=== PATIENT | male | born 1940 | race Caucasian/White ===

== ENCOUNTER → 2023-07-14 06:58 | Outpatient (REF) | payer MEDICARE, BC, SELFPAY | LOC: PAVMRI 06:58 | PROVIDERS: ATTENDING PHYSICIAN Internal Medicine; FAMILY PHYSICIAN Internal Medicine Geriatric Medicine | DX: I63.9 Cerebral infarction, unspecified (principal); G45.9 Transient cerebral ischemic attack, unspecified; Z86.73 Personal history of transient ischemic attack (TIA), and cerebral infarction without residual deficits | CPT/HCPCS: 70551 ==

== ENCOUNTER → 2023-08-04 10:57 | Outpatient (REF) | payer MEDICARE, BC, SELFPAY | LOC: RAD 10:57 | PROVIDERS: ATTENDING PHYSICIAN Internal Medicine; FAMILY PHYSICIAN Internal Medicine Geriatric Medicine; REFERRING PHYSICIAN Internal Medicine Cardiovascular Disease | DX: I63.9 Cerebral infarction, unspecified (principal); G45.9 Transient cerebral ischemic attack, unspecified | CPT/HCPCS: 93880 ==

== ENCOUNTER → 2024-01-11 07:18 | Outpatient (REF) | payer MEDICARE, BC, SELFPAY ==
[2024-01-11 08:50] LABS: % Basophils 0.9 % (0-2); % Eosinophils 1.4 % (0-6); % Immature Granulocytes 0.4 % (0-0.5); % Lymphocytes 26.4 % (20.5-51.1); % Monocytes 10.4 % (1.7-9.3); % Neutrophils 60.5 % (42.2-75.2); Absolute Basophils 0.1 10^3/uL (0-0.2); Absolute Eosinophils 0.1 10^3/uL (0-0.7); Absolute Monocytes 0.8 10^3/uL (0.1-0.6); Absolute Neutrophils 4.6 10^3/uL (1.4-6.5); Mean Corp Hgb Conc. 33.3 g/dL (33.0-37.0); Mean Corpuscular Hgb 27.6 pg (27.0-31.0); Mean Corpuscular Volume 82.7 fL (80.0-94.0); Mean Platelet Volume 10.2 fL (7.4-10.4); Nucleated Red Blood Cells % 0 % (-); Platelet Count 267 10^3/uL (130-400); Red Blood Cell Count 5.08 10^6/uL (4.70-6.10); Red Cell Dist. Width 14.5 % (11.5-14.5); White Blood Cell Count 7.7 10^3/uL (4.8-10.8)
[2024-01-11 09:12] LABS: Microalbumin, Random Urine 1.6 mg/dl (0.6-1.7); Microalbumin/creatinine Ratio 16.7 mg/g
[2024-01-11 09:22] LABS: ALT (SGPT) 25 U/L (0-50); AST (SGOT) 27 U/L (17-59); Albumin 4.5 g/dl (3.5-5.0); Alkaline Phosphatase 37 U/L (38-126); Blood Urea Nitrogen 33 mg/dl (9-20); Calcium 9.7 mg/dl (8.4-10.2); Carbon Dioxide 28 mmol/L (22-30); Chloride 98 mmol/L (98-107); Glucose 109 mg/dl (70-99); HDL Cholesterol 48 mg/dl; LDL Cholesterol, Calculated 43 mg/dl; Sodium 139 mmol/L (135-145); Total Bilirubin 0.7 mg/dl (0.2-1.3); Total Cholesterol 107 mg/dl (50-199); Total Protein 6.9 g/dl (6.3-8.2); Triglyceride 80 mg/dl (10-149); Very Low Density Lipoprotein 16 mg/dl (0-30); eGFR > 60.00
[2024-01-11 10:34] LABS: Glycohemoglobin (HgbA1c) 7.1 % (4.0-5.6)
[2024-01-13 04:20] LABS: C-Peptide 0.5 ng/mL (0.5-3.3)
== END ==
LOC: REG 07:18
PROVIDERS: ATTENDING PHYSICIAN Internal Medicine Geriatric Medicine
DX: E11.9 Type 2 diabetes mellitus without complications (principal); R26.89 Other abnormalities of gait and mobility; H53.9 Unspecified visual disturbance; I10 Essential (primary) hypertension; E78.5 Hyperlipidemia, unspecified; I48.0 Paroxysmal atrial fibrillation; I25.10 Atherosclerotic heart disease of native coronary artery without angina pectoris; K21.9 Gastro-esophageal reflux disease without esophagitis; N40.0 Benign prostatic hyperplasia without lower urinary tract symptoms; Z13.31 Encounter for screening for depression; E11.42 Type 2 diabetes mellitus with diabetic polyneuropathy
CPT/HCPCS: 36415; 80053; 80061; 82043; 82570; 83036; 84681; 85025

== ENCOUNTER 2024-07-27 09:49 | Emergency (ER) | payer MEDICARE, BC, SELFPAY ==
[2024-07-27] VITALS (8 sets, daily range): BP systolic 112–143; BP diastolic 65–77
--- NOTE | 2024-07-27 10:39 | ED.CVA ---
History of Present Illness
General
Chief Complaint: CVA/TIA Symptoms
Source: patient and spouse
Time Seen by Provider: 07/27/24 10:06
Onset of Stroke Symptoms
Onset of symptoms known: Yes
Date of onset of symptoms: 07/26/24
History of Present Illness
History of Present Illness:
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 Patient had at least a 2-hour episode of visual field disturbance, aphasia, confusion.
Symptoms resolved before he went to bed. He awoke this morning and thought more carefully about what he experienced yesterday and decided he should come for evaluation. Patient does have a history of complicated migraines which over the past few
years have been without actual headache. His typical symptoms are visual field disturbance described as a puzzle missing pieces as well as word finding difficulties. They typically last a few minutes. He does not typically have confusion with
those episodes. Patient has been seen here in the emergency room for those episodes and has had negative workups including MRIs negative for ischemic events as well as vascular studies which showed no significant stenosis.
Past History
Past History
ED Past Medical History: NIDDM
ED Past Surgical History: Other (shoulder surgery. no abdominal)
Social History
Personal:
Living: with family
Phy Exam
Physical Exam
Physical Exam:
General: Awake, Alert, Oriented X3. No acute distress.
Vitals: unremarkable
Head: Atraumatic
Eyes: Pupils equal, EOMI
Throat: Airway intact, no exudates
Neck: Trachea midline
Lungs: Clear and equal b/l
Heart: Regular rate, no murmurs
Abd: Soft, Nontender, No pulsatile mass
Neuro: Cranial nerves intact, muscle strength equal bilaterally, cerebellar exam normal
Skin: Warm, dry, no rash
Extremities: pulses equal b/l, no edema
Course
Orders/Labs/Results
Orders:
Orders
07/27/24 10:25
Electrocardiogram (*1) Stat
Reason for Study: Other
Other Reason for Exam: neuro symptoms
CT Head W/o Iv Contrast Urgent
Comment:
Reason For Exam: confusion, apasia
Cardiac Monitoring- Treatment ONCE
EKG- Treatment ONCE
07/27/24 10:31
CRP [C-Reactive Protein] Urgent
Complete Blood Count/With Diff Urgent
Comprehensive Metabolic Panel Urgent
Erythrocyte Sed Rate Urgent
07/27/24 11:02
EEG Routine Routine
Reason for Exam: Encephalopathy
07/27/24 12:55
MRI Brain [MR Brain Without Contrast] Routine
Comment:
Reason For Exam: TIA
OK for patient to be off Cardiac Monitoring for MRI: No
Recent pill cam endoscopy?: No
07/27/24 13:04
Echo 2D MMode Color/Doppler Routine
Reason for Study: TIA
07/27/24 17:50
Levetiracetam Injectable [Keppra] 1,000 mg IV NOW STA
07/27/24 18:00
Rivaroxaban [Xarelto] 20 mg PO QPM
07/27/24 20:00
Levetiracetam Injectable [Keppra] 500 mg IV Q12
Abnormal Lab Results
07/27/24
10:31
Absolute Monos (auto) 0.7 H 10^3/uL
(0.1-0.6)
Monocytes % 11.4 H %
(1.7-9.3)
BUN 21 H mg/dl
(9-20)
Glucose 162 H mg/dl
(70-99)
07/27/24 10:31
07/27/24 10:31
Vital Signs
Initial and Last Documented VS:
Initial Vital Signs
Temp Pulse Resp BP Pulse Ox
97.8 F 62 16 124/71 97
07/27/24 10:00 07/27/24 10:00 07/27/24 10:00 07/27/24 10:00 07/27/24 10:00
Last Documented Vital Signs
Temp Pulse Resp BP Pulse Ox
97.8 F 73 22 142/77 96
07/27/24 10:00 07/27/24 18:00 07/27/24 18:00 07/27/24 18:00 07/27/24 18:00
MDM/Problems Addressed
Differential Diagnosis Includes:
CVA, TIA, seizure, complicated migraine
MDM/Problems Addressed:
Patient presents for evaluation today after having an episode yesterday of visual field deficit, confusion. Patient has had several events over the years. Ischemic workups are always negative. Today he has had a CT of the head which showed no
acute abnormalities, MRI of the brain which showed no ischemic events and echo which is unchanged from previous. Patient also had an EEG which is read by neurology as suggestive of possible seizure disorder. Patient loaded with Keppra here and a
prescription for Keppra sent to the pharmacy. Patient has a neurologist at the [facility] primary for Parkinson's disease but he has an appointment in just a couple weeks. He will follow-up with the neurologist. Patient
understands that his seizure disorder has been reported to [employer] and he cannot drive until cleared
*EKG
Interpreted by ED Provider?: Yes
Heart Rate: 61
Rate: normal
Rhythm: sinus
[place]: normal axis
Interval: normal interval
QRS Pattern: normal QRS
Ischemia: no ischemia
*M[facility]anner Interpretation
Rate: normal
Interpretation: normal
Heart Rate: 61
Rhythm: sinus
*Critical Care Note
Total Time (30-74mins, 75-104mins- exclusive of procedures): Not Applicable
ED Attending Note
-
Portions of this chart may have been created with voice recognition software.� Occasional wrong word or��sound alike� substitutions may have occurred due to the inherent limitations of voice recognition software.
Discharge Plan
Departure
Patient Disposition: Home (Routine Discharge)
Date of Disposition: 07/27/24
Time of Disposition: 18:06
Patient with high blood pressure during this ER visit?: No
Discharge Problem:
Complex partial seizure
Instructions: Epilepsy in adults
Prescriptions:
New
levetiracetam [Keppra] 500 mg tablet
500 mg PO BID Qty: 60 0RF
No Action
metformin 1,000 MG tablet
1,000 mg PO BID
ramipril 2.5 MG capsule
2.5 mg PO DAILY
flecainide 50 MG tablet
100 mg PO BID
dutasteride 0.5 MG capsule
0.5 mg PO QPM
glipizide 5 MG tablet extended release 24hr
5 mg PO DAILY
melatonin 3 MG tablet
3 mg PO HSPRN PRN (Reason: sleep)
acetaminophen [Tylenol Extra Strength] 500 MG tablet
500 - 1,000 mg PO Q4HPRN PRN (Reason: mild pain/headache)
omeprazole 20 MG capsule,delayed release(DR/EC)
20 mg PO DAILY
diphenhydramine-acetaminophen [Tylenol PM Extra Strength] 1 EACH tablet
1 ea PO HSPRN PRN (Reason: sleep)
rivaroxaban [Xarelto] 20 MG tablet
20 mg PO QPM
atorvastatin 40 MG tablet
40 mg PO QPM Qty: 30 0RF
Referrals:
Jax Galdamez MD [Active] -
Eric Arroyo MD [Family Provider] -
Activity Restrictions/Additional Instructions:
Testing here including an EEG suggests you are suffering from a seizure disorder. This would explain the episode you are having. Our neurologist has recommended you start a medication called Keppra. We have given you a loading dose here and I
have sent a prescription for you to take. 1 pill twice a day. Please discuss these findings with your neurologist at [place]. Return to the emergency room for any concerns. As we have discussed I am required to file a report with the state
department of transportation that you have had a seizure. Your neurologist can clear you when you have been seizure-free for period of time.
Interventions
Interventions:
*Risk Screen - Suicide Last Done: 07/27/24 10:48
*General Assessment Last Done: 07/27/24 10:48
*Neglect/Abuse Screening Last Done: 07/27/24 10:48
*ED- Fall Risk Assessment Last Done: 07/27/24 10:48
*ED COVID-19 Vaccine History Last Done: 07/27/24 10:48
*Nursing Disposition Last Done: 07/27/24 18:28
ED- Pulmonary Assessment Last Done: 07/27/24 10:48
ED- Neurological Assessment Last Done: 07/27/24 10:48
ED- Cardiac Assessment Last Done: 07/27/24 10:48
Discharge Date and Time
Print Language: [place]
[2024-07-27 10:46] LABS: % Eosinophils 1.1 % (0-6); % Immature Granulocytes 0.2 % (0-0.5); % Lymphocytes 24.5 % (20.5-51.1); % Monocytes 11.4 % (1.7-9.3); % Neutrophils 61.8 % (42.2-75.2); Absolute Basophils 0.1 10^3/uL (0-0.2); Absolute Eosinophils 0.1 10^3/uL (0-0.7); Absolute Lymphocytes 1.5 10^3/uL (1.2-3.4); Absolute Monocytes 0.7 10^3/uL (0.1-0.6); Absolute Neutrophils 3.9 10^3/uL (1.4-6.5); Hematocrit 40.7 % (39.0-52.0); Hemoglobin 13.5 g/dL (13.0-18.0); Mean Corp Hgb Conc. 33.2 g/dL (33.0-37.0); Mean Corpuscular Hgb 28.2 pg (27.0-31.0); Mean Corpuscular Volume 85.1 fL (80.0-94.0); Mean Platelet Volume 9.5 fL (7.4-10.4); Nucleated Red Blood Cells % 0 % (-); Platelet Count 211 10^3/uL (130-400); Red Blood Cell Count 4.78 10^6/uL (4.70-6.10); Red Cell Dist. Width 14.3 % (11.5-14.5); White Blood Cell Count 6.3 10^3/uL (4.8-10.8)
--- NOTE | 2024-07-27 10:57 | CON.NEURO ---
Consultation
Order
Date of Consultation: 07/27/24
Requesting Provider: Gorge Reyes DO
Reason for Consult: Recurrent spells
Neurology Consultation Note.
HPI: This is an 84-year-old RH man who presented to [facility] on 07/27/2024 with transient aphasia and encephalopathy. According to the patient the episode lasted approximately 30 minutes. Mr. Mckeon reports that he suddenly
couldn't speak well, felt confused, and dizzy. He told his and sat down to watch TV but was unable to turn it on with his phone. This experience felt different from his previous episodes of occipital cheek migraine, where parts of his vision
would disappear like a puzzle for about half an hour.
Unlike his usual visual symptoms, the patient's vision was fine during this episode. His , who was present, noticed his struggle with speech but not comprehension.
Mr. Mckeon states that he has been compliant with his Xarelto. He reportedly was on Eliquis but reports it 'didn't work'.
ER VS: 124/71, 62, afebrile
EKG:NSR, QTc Int : 436 ms
PDMP: No recently prescribed medication
Labs: Unremarkable
Carotid Doppler ultrasound ()�no hemodynamically significant stenosis
PMH: Parkinsonism, PA A-fib, CAD, HTN, DLP, BPH, insomnia, polyneuropathy, cephalgia migraine
PSH: Right inguinal hernia repair, [employer], right shoulder arthroplasty, knee arthroscopy
SH: , non-smoker
FH: Mother�cancer Father�diabetes
All:NKDA
ROS: Constitutional: Negative. Negative for chills, fever and unexpected weight change.
HENT: Negative for ear pain, hearing loss, tinnitus and trouble swallowing.
Eyes: Negative. Negative for photophobia, pain and visual disturbance.
Respiratory: Negative for cough, choking and shortness of breath.
Cardiovascular: Negative for chest pain, palpitations and leg swelling.
Gastrointestinal: Negative for abdominal pain and vomiting.
Endocrine: Negative. Negative for cold intolerance.
Genitourinary: Negative for dysuria, flank pain and urgency.
Musculoskeletal: Negative for back pain, gait problem, neck pain and neck stiffness.
Skin: Negative for rash.
Allergic/Immunologic: Negative. Negative for immunocompromised state.
Neurological: Positive for transient aphasia and encephalopathy, chronic intermittent right hand resting tremor
Psychiatric/Behavioral: Positive for insomnia
General: Well developed. In no acute distress.
Cardio: Regular rate and rhythm without murmur. Extremities are without cyanosis or edema.
Neuro:
Mental Status: Alert, oriented to person, place, and date. Normal attention and recall. Good fund of knowledge. Follows complex requests across the midline. Comprehension, naming, and repetition intact.
Cranial Nerves: Pupils are equally round and reactive to light. EOMs full. Visual rust full to confrontation. No ptosis. No nystagmus. V1-V3 intact to light touch and pinprick bilaterally, symmetric. Face symmetric. Normal hearing AU. The
palate elevated well. SCMs and traps 5/5. Tongue midline. No dysarthria.
Motor: Mildly increased motor tone at the right wrist with augmentation. No pronator or arm drift. Strength 5/5 throughout. No clonus.
Reflexes: 2+ throughout the upper extremities and knees. 2/2 in AJs. Plantar responses flexor bilaterally.
Sensory: Normal vibration at the toes
Coordination: Intermittent right resting hand tremor. No dysmetria
Gait: deferred
Bilateral pes cavus
Assessment and Plan:
I. Transient aphasia with encephalopathy. Differential diagnosis includes epileptic versus vascular.
II.PA A-fib on AC
III. Parkinsonism
-Telemetry monitoring
-Continue Telemetry monitoring
-Hold Pradaxa until MRI is completed
-Start ASA 81 mg QD
-Routine EEG
-Brain MRI without donavan
-Further workup will depend on the above results
-DVT prophylaxis.
I personally reviewed all radiology and labs along with past medical records pertinent to current medical problems. Total time spent in patient care is 60 minutes.
Thank you for allowing us to participate in the care of this patient. We will continue to follow. Please do not hesitate to contact us with any questions or concerns.
Subjective/Objective
Subjective Data
Date of Service: July 27, 2024
Objective Data
Vital Signs
Temp Pulse Resp BP Pulse Ox
36.6 C 61 20 116/71 99
07/27/24 10:00 07/27/24 10:33 07/27/24 10:33 07/27/24 10:33 07/27/24 10:48
Lab Results
07/27/24 10:31
Patient Allergies
No Known Allergies Allergy (Verified 02/05/22 12:00)
Medications
-
Home Medications
�Medication �Instructions �Recorded
dutasteride 0.5 mg capsule 0.5 mg PO QPM Urinary issue 12/22/12
flecainide 50 mg tablet 100 mg PO BID Heart 12/22/12
disease/condition
metformin 1,000 mg tablet 1,000 mg PO BID Diabetes 12/22/12
ramipril 2.5 mg capsule 2.5 mg PO DAILY Blood pressure 12/22/12
acetaminophen 500 mg tablet 500 - 1,000 mg PO Q4HPRN PRN mild 11/29/19
(Tylenol Extra Strength) pain/headache
diphenhydramine 25 1 ea PO HSPRN PRN sleep 11/29/19
mg-acetaminophen 500 mg tablet
(Tylenol PM Extra Strength)
glipizide 5 mg tablet, extended 5 mg PO DAILY Diabetes 11/29/19
release 24 hr
melatonin 3 mg tablet 3 mg PO HSPRN PRN sleep 11/29/19
omeprazole 20 mg capsule,delayed 20 mg PO DAILY Gastrointestinal 11/29/19
release issue
rivaroxaban 20 mg tablet (Xarelto) 20 mg PO QPM Blood clot 11/29/19
prevention/tx
atorvastatin 40 mg tablet 40 mg PO QPM #30 tabs 11/30/19
Vital Signs and Labs
-
Vital Signs and Labs:
Vital Signs
Temp Pulse Resp BP Pulse Ox
36.6 C 61 20 116/71 99
07/27/24 10:00 07/27/24 10:33 07/27/24 10:33 07/27/24 10:33 07/27/24 10:48
Lab Results
07/27/24 10:31
Home Medications
-
Home Medications
dutasteride 0.5 mg capsule 0.5 mg PO QPM Urinary issue 12/22/12
flecainide 50 mg tablet 100 mg PO BID Heart disease/condition 12/22/12
metformin 1,000 mg tablet 1,000 mg PO BID Diabetes 12/22/12
ramipril 2.5 mg capsule 2.5 mg PO DAILY Blood pressure 12/22/12
acetaminophen 500 mg tablet (Tylenol Extra Strength) 500 - 1,000 mg PO Q4HPRN PRN mild pain/headache 11/29/19
diphenhydramine 25 mg-acetaminophen 500 mg tablet (Tylenol PM Extra Strength) 1 ea PO HSPRN PRN sleep 11/29/19
glipizide 5 mg tablet, extended release 24 hr 5 mg PO DAILY Diabetes 11/29/19
melatonin 3 mg tablet 3 mg PO HSPRN PRN sleep 11/29/19
omeprazole 20 mg capsule,delayed release 20 mg PO DAILY Gastrointestinal issue 11/29/19
rivaroxaban 20 mg tablet (Xarelto) 20 mg PO QPM Blood clot prevention/tx 11/29/19
atorvastatin 40 mg tablet 40 mg PO QPM #30 tabs 11/30/19
[2024-07-27 11:16] LABS: C-Reactive Protein < 5.00 mg/L (0.0-10.00)
[2024-07-27 11:17] LABS: ALT (SGPT) 27 U/L (0-50); AST (SGOT) 23 U/L (17-59); Albumin 4.4 g/dl (3.5-5.0); Alkaline Phosphatase 50 U/L (38-126); Blood Urea Nitrogen 21 mg/dl (9-20); Calcium 9.6 mg/dl (8.4-10.2); Carbon Dioxide 26 mmol/L (22-30); Chloride 100 mmol/L (98-107); Glucose 162 mg/dl (70-99); Potassium 4.8 mmol/L (3.5-5.1); Sodium 137 mmol/L (135-145); Total Bilirubin 0.6 mg/dl (0.2-1.3); Total Protein 6.5 g/dl (6.3-8.2); eGFR > 60.00
[2024-07-27 11:58] LABS: Erythrocyte Sed Rate 3 mm/hour (0-20)
--- NOTE | 2024-07-27 17:47 | EEGC.RPT ---
Continuous EEG Report
Recording
Start Date of Data Reviewed: 07/27/24
End Date of Data Reviewed: 07/27/24
Done with Video Recording: Yes
Report
TECHNICAL REMARKS:��This is a technically satisfactory eighteen channel record employing 21 disc electrodes applied according to a measured international 10-20 electrode placement system.��There were no significant technical difficulties.��The study
was done on a [employer] System.
CLINICAL HISTORY:�This is an 84-year-old man with transient aphasia. �This study was requested to look for epileptiform activity.
MEDICATIONS: no AED
STUDY DURATION: 23 min, 4 sec
�
REPORT: �At the onset of the EEG, the patient is awake. The background activity consists of 8.5-9 Hz, persistent, posteriorly dominant, moderate in amplitude, symmetric, and rhythmic activity that is reactive to eye-opening with admixed 10-15
microvolts delta activity.� Intermittent left greater than right bifrontal as well as generalized slowing with infrequent left frontal sharps is seen. Stepwise intermittent photic stimulation (1-31 Hz) did not induce any additional abnormalities.�
Hyperventilation was not performed.� Drowsiness is characterized by low amplitude mixed frequency activity, decreased eye blinking, and muscle artifact. N2 sleep was reached
�
IMPRESSION: �This is an abnormal awake and asleep EEG due to intermittent bifrontal and generalized slowing and infrequent left frontal sharp waves indicative of propensity to have seizures from the above region and encephalopathy not specific in
terms of etiology.
[2024-07-27] MEDS: KEPPRA 1000 MG IV (18:14)
== END 2024-07-27 18:28 | disposition home or self-care (01) ==
LOC: EMR 09:49
PROVIDERS: EMERGENCY PHYSICIAN Emergency Medicine; FAMILY PHYSICIAN Internal Medicine Geriatric Medicine; OTHER PHYSICIAN Psychiatry & Neurology Neurology
DX: G40.209 Localization-related (focal) (partial) symptomatic epilepsy and epileptic syndromes with complex partial seizures, not intractable, without status epilepticus (principal)
CPT/HCPCS: 99285; 96374; 70450; 70551; 80053; 85025; 85652; 86140; 93005; 93306; 95816

== ENCOUNTER → 2024-08-25 07:05 | Outpatient (REF) | payer MEDICARE, BC, SELFPAY ==
[2024-08-25 08:38] LABS: HDL Cholesterol 51 mg/dl; LDL Cholesterol, Calculated 49 mg/dl; Total Cholesterol 117 mg/dl (50-199); Triglyceride 88 mg/dl (10-149); Very Low Density Lipoprotein 17 mg/dl (0-30)
== END ==
LOC: REG 07:05
PROVIDERS: ATTENDING PHYSICIAN Psychiatry & Neurology Neurology; FAMILY PHYSICIAN Internal Medicine Geriatric Medicine
DX: G20.A1 Parkinson's disease without dyskinesia, without mention of fluctuations (principal); R29.818 Other symptoms and signs involving the nervous system; G45.9 Transient cerebral ischemic attack, unspecified
CPT/HCPCS: 36415; 80061

== ENCOUNTER → 2024-08-30 07:10 | Outpatient (REF) | payer MEDICARE, BC, SELFPAY | LOC: RAD 07:10 | PROVIDERS: ATTENDING PHYSICIAN Psychiatry & Neurology Neurology; FAMILY PHYSICIAN Internal Medicine Geriatric Medicine; OTHER PHYSICIAN Internal Medicine | DX: R29.818 Other symptoms and signs involving the nervous system (principal); G20.A1 Parkinson's disease without dyskinesia, without mention of fluctuations; G45.9 Transient cerebral ischemic attack, unspecified | CPT/HCPCS: 93880 ==

== ENCOUNTER → 2025-01-09 07:10 | Outpatient (REF) | payer MEDICARE, BC, SELFPAY ==
[2025-01-09 08:15] LABS: Hematocrit 40.3 % (39.0-52.0); Hemoglobin 13.4 g/dL (13.0-18.0); Mean Corp Hgb Conc. 33.3 g/dL (33.0-37.0); Mean Corpuscular Volume 85.9 fL (80.0-94.0); Nucleated Red Blood Cells % 0 % (-); Platelet Count 223 10^3/uL (130-400); Red Cell Dist. Width 14.4 % (11.5-14.5)
[2025-01-09 08:16] LABS: Urine Character Clear (Clear)
[2025-01-09 08:30] LABS: Urine Red Blood Cell 0-2 /HPF (0-2); Urine Squamous Cell 0-2 /LPF (Few)
[2025-01-09 09:10] LABS: Vitamin D, 25-OH*** 34.4 ng/mL (30-80)
[2025-01-09 09:21] LABS: Glycohemoglobin (HgbA1c) 7.4 % (4.0-5.6)
[2025-01-09 09:33] LABS: ALT (SGPT) 19 U/L (0-50); AST (SGOT) 18 U/L (17-59); Albumin 4.0 g/dl (3.5-5.0); Alkaline Phosphatase 38 U/L (38-126); Blood Urea Nitrogen 23 mg/dl (9-20); Calcium 9.2 mg/dl (8.4-10.2); Carbon Dioxide 27 mmol/L (22-30); Chloride 103 mmol/L (98-107); Glucose 139 mg/dl (70-99); HDL Cholesterol 51 mg/dl; LDL Cholesterol, Calculated 42 mg/dl; Potassium 4.5 mmol/L (3.5-5.1); Sodium 137 mmol/L (135-145); Total Protein 6.3 g/dl (6.3-8.2); Very Low Density Lipoprotein 13 mg/dl (0-30); eGFR > 60.00
== END ==
LOC: REG 07:10
PROVIDERS: ATTENDING PHYSICIAN Internal Medicine Geriatric Medicine
DX: E11.9 Type 2 diabetes mellitus without complications (principal); R26.89 Other abnormalities of gait and mobility; H53.9 Unspecified visual disturbance; R47.9 Unspecified speech disturbances; I10 Essential (primary) hypertension; E78.5 Hyperlipidemia, unspecified; I48.0 Paroxysmal atrial fibrillation; I25.10 Atherosclerotic heart disease of native coronary artery without angina pectoris; K21.9 Gastro-esophageal reflux disease without esophagitis; N40.0 Benign prostatic hyperplasia without lower urinary tract symptoms; Z13.31 Encounter for screening for depression; E11.42 Type 2 diabetes mellitus with diabetic polyneuropathy; G20.C Parkinsonism, unspecified; Z23 Encounter for immunization; E55.9 Vitamin D deficiency, unspecified
CPT/HCPCS: 36415; 80053; 80061; 81003; 81015; 82306; 83036; 84681; 85025

== ENCOUNTER → 2025-02-26 14:47 | Outpatient (REF) | payer MEDICARE, BC, SELFPAY ==
[2025-02-26 16:29] LABS: PSA, Total - Screen 1.59 ng/ml (0.0-4.0)
== END ==
LOC: REG 14:47
PROVIDERS: ATTENDING PHYSICIAN Internal Medicine Geriatric Medicine
DX: Z12.5 Encounter for screening for malignant neoplasm of prostate (principal); N40.0 Benign prostatic hyperplasia without lower urinary tract symptoms
CPT/HCPCS: 36415; G0103